=== PATIENT | male | born 1965 | race Caucasian/White ===

== ENCOUNTER 2024-11-08 13:24 | Inpatient (IN) | payer MEDICARE, OTHER ==
[~2024-11-08] VITALS: Ht 180.3 cm; Wt 86.2 kg
[2024-11-08] MEDS: LORAZEPAM 2 MG/1 ML VIAL IM ONE (14:33)
[2024-11-08] MEDS: OLANZAPINE 10 MG VIAL IM ONE (14:33)
[2024-11-08 15:29] VITALS: BP 138/90; TEMP 97.4; O2SAT 98
[2024-11-08] MEDS: BLOOD SUGAR DIAGNOSTIC 1 EACH STRIP VI ONE (16:03)
[2024-11-08] MEDS ORDERED: MAGNESIUM HYDROXIDE 30 ML LIQUID UDC PO PRN (17:00)
[2024-11-08] MEDS ORDERED: ACETAMINOPHEN 325 MG TABLET PO PRN (17:00)
[2024-11-08] MEDS ORDERED: LORAZEPAM 1 MG TABLET PO PRN (17:00)
[2024-11-08] MEDS ORDERED: MAG HYDROX/AL HYDROX/SIMETH 30 ML LIQUID UDC PO PRN (17:00)
[2024-11-08 20:00] VITALS: BP 132/79; TEMP 98.7; O2SAT 97
[2024-11-08] MEDS: diphenhydrAMINE 50 MG/1 ML VIAL IM STA (20:32)
[2024-11-08] MEDS: HALOPERIDOL LACTATE 5 MG/1 ML VIAL IM ONE (20:32)
[2024-11-08] MEDS ORDERED: ZOLPIDEM 5 MG TABLET PO PRN (21:00)
[2024-11-09 07:59] LABS: ALBUMIN 3.4 g/dL (3.4-5.0); BILIRUBIN,TOTAL 0.8 mg/dL (0.2-1.0); CREATININE 0.7 mg/dL (0.6-1.3); POTASSIUM 3.5 mmol/L (3.5-5.1); TOTAL PROTEIN, SERUM 6.4 g/dL (6.4-8.2)
[2024-11-09] MEDS: BENZTROPINE MESYLATE 0.5 MG TABLET PO SCH (09:18)
[2024-11-09] MEDS: HALOPERIDOL 2 MG TABLET PO SCH (09:18)
[2024-11-09 20:00] VITALS: BP 124/81; TEMP 98.4; O2SAT 95
[2024-11-09] MEDS: LORAZEPAM 1 MG TABLET PO PRN (20:48)
[2024-11-10 07:59] VITALS: BP 124/79; TEMP 98.9; O2SAT 98
[2024-11-10 16:15] VITALS: BP 157/81; TEMP 97.8; O2SAT 97
[2024-11-11] MEDS: QUETIAPINE FUMARATE 25 MG TABLET PO SCH ×2 (14:40→20:34)
[2024-11-11 16:06] VITALS: BP 158/105; TEMP 98.7; O2SAT 96
[2024-11-11 19:52] VITALS: BP 128/85; TEMP 99; O2SAT 96
[2024-11-12 08:24] VITALS: BP 135/50; TEMP 98.5; O2SAT 100
[2024-11-12 16:21] VITALS: BP 147/74; TEMP 97.4; O2SAT 98
[2024-11-13] MEDS: diphenhydrAMINE 50 MG/1 ML VIAL IM ONE (13:15)
[2024-11-13] MEDS: HALOPERIDOL LACTATE 5 MG/1 ML VIAL IM ONE (13:15)
[2024-11-14 08:47] VITALS: BP 109/80; TEMP 98; O2SAT 94
[2024-11-14] MEDS: QUETIAPINE FUMARATE 25 MG TABLET PO SCH (09:00)
[2024-11-14] MEDS: QUETIAPINE FUMARATE 25 MG TABLET PO ONE (09:53)
[2024-11-14 15:43] VITALS: BP 143/75; TEMP 98.6; O2SAT 96
[2024-11-14 20:00] VITALS: BP 129/100; TEMP 97.6; O2SAT 97
[2024-11-15 07:42] VITALS: BP 137/89; TEMP 98.3; O2SAT 100
[2024-11-15 16:00] VITALS: BP 146/82; TEMP 97.6; O2SAT 98
[2024-11-16] MEDS: diphenhydrAMINE 50 MG/1 ML VIAL IM ONE (08:55)
[2024-11-16] MEDS: HALOPERIDOL LACTATE 5 MG/1 ML VIAL IM ONE (08:57)
[2024-11-16] MEDS: QUETIAPINE FUMARATE 25 MG TABLET PO SCH ×2 (10:25→21:00)
[2024-11-16 16:32] VITALS: BP 107/55; TEMP 97.6; O2SAT 96
[2024-11-16 20:04] VITALS: BP 130/82; TEMP 97.9; O2SAT 98
[2024-11-17 07:36] VITALS: BP 115/79; TEMP 97.2; O2SAT 97
[2024-11-17] MEDS: DIVALPROEX SPRINKLE 125 MG CAP.SPRINK PO SCH (10:20)
[2024-11-17 16:00] VITALS: BP 122/87; TEMP 97.8; O2SAT 98
[2024-11-17 19:59] VITALS: BP 116/79; TEMP 97.9; O2SAT 96
[2024-11-18] MEDS: diphenhydrAMINE 50 MG/1 ML VIAL IM ONE (08:06)
[2024-11-18] MEDS: HALOPERIDOL LACTATE 5 MG/1 ML VIAL IM ONE (08:07)
[2024-11-18] MEDS: QUETIAPINE FUMARATE 25 MG TABLET PO SCH (09:00)
[2024-11-18 20:08] VITALS: BP 122/80; TEMP 97.6; O2SAT 96
[2024-11-19] MEDS: TEMAZEPAM 7.5 MG CAPSULE PO PRN (01:26)
[2024-11-19 08:14] VITALS: BP 122/71; TEMP 98.5; O2SAT 98
[2024-11-20] MEDS: diphenhydrAMINE 50 MG/1 ML VIAL IM STA (16:38)
[2024-11-20] MEDS: HALOPERIDOL LACTATE 5 MG/1 ML VIAL IM STA (16:38)
[2024-11-20] MEDS: QUETIAPINE FUMARATE 100 MG TABLET PO SCH (20:47)
[2024-11-20] MEDS ORDERED: QUETIAPINE FUMARATE 25 MG TABLET PO SCH (21:00)
[2024-11-21 08:09] VITALS: BP 136/83; TEMP 98; O2SAT 96
[2024-11-21] MEDS: QUETIAPINE FUMARATE 100 MG TABLET PO SCH (08:19)
[2024-11-21] MEDS ORDERED: QUETIAPINE FUMARATE 25 MG TABLET PO SCH (09:00)
[2024-11-21 15:18] VITALS: BP 129/80; TEMP 98; O2SAT 98
[2024-11-21] MEDS: QUETIAPINE FUMARATE 200 MG TABLET PO SCH (20:43)
[2024-11-21] MEDS ORDERED: QUETIAPINE FUMARATE 100 MG TABLET PO SCH (21:00)
[2024-11-22 15:09] VITALS: BP 123/85; TEMP 98; O2SAT 98
[2024-11-22] MEDS: DIVALPROEX SPRINKLE 125 MG CAP.SPRINK PO SCH (17:23)
== END 2024-11-23 20:39 | DRG 885 ==
LOC: GPS 13:24
PROVIDERS: ADMIT Psychiatry & Neurology Psychiatry
DX: F25.0 Schizoaffective disorder, bipolar type (principal); Z59.01 Sheltered homelessness; H54.8 Legal blindness, as defined in USA; Z79.899 Other long term (current) drug therapy
CPT/HCPCS: 36415; 80164; J1200; J1630; J2060; J2358